=== PATIENT | male | born 1980 | race Caucasian/White ===

== ENCOUNTER 2018-05-02 14:50 | Emergency (ER) | payer OTHER ==
[~2018-05-02] VITALS: Ht 185.4 cm; Wt 89.4 kg
[~2018-05-02 14:50] MED LIST: ALBU90OI INH; AZIT250 PO; CODGUAEL PO; CYCL10 PO; GABA300 PO; HYDACE5 PO; IBUP600 PO; IBUP800 PO; METPRE4DP PO; Naprosyn500 MG PO; Norco 5-325 Ta1 EACH PO; OXYACE5T PO; PENVK500 PO
[2018-05-02] MEDS ORDERED: Norco 5-325 Ta1 EACH PO (15:42)
== END 2018-05-02 15:50 | disposition home or self-care (01) ==
LOC: ER 14:50
DX: S42.201A Unspecified fracture of upper end of right humerus, initial encounter for closed fracture (principal); Z87.891 Personal history of nicotine dependence; Y04.2XXA Assault by strike against or bumped into by another person, initial encounter
CPT/HCPCS: 29105; 73030; 99283-25